=== PATIENT | female | born 2000 | race Caucasian/White ===

== ENCOUNTER → 2019-06-23 11:28 | Outpatient (CLI) | payer OTHER, MEDICAID, SELFPAY ==
--- NOTE | 2019-06-23 11:32 | DI.US.S_ITS ---
PROCEDURE: US OB <= 14 WEEKS FETUS INDICATIONS: INITIAL US FOR DATING AND VIBILITY PLEASE OUTSIDE/PRIOR DATING DATA: Last menstrual period (LMP): Unknown. LMP-based estimated date of delivery (LESTER): Unknown. First dating scan (date and location): 06/23/19. Estimated date of delivery (LESTER) from first dating scan: 01/25/20. TECHNIQUE: Real-time scanning was performed of the fetus and maternal pelvic organs, with image documentation. COMPARISON: None. FINDINGS: Embryo: Single live intrauterine gestation is seen with fetus noted. heart rate is 162 beats per minute. [place]-rump length is 2.5 cm. Estimated gestational age is 9 weeks one day. Cervix is closed, cervical length is 4.2 cm. Measurement variability in dating: +/- 4 weeks by LMP, +/- 7 days by mean sac diameter (use before 6 weeks gestation if crown-rump length not able to be measured), +/- 5 days by crown-rump length (up to 8 weeks 6 days gestation), +/- 7 days by crown-rump length (up to 13 weeks 6 days gestation). Maternal organs: Right ovary is not well seen on this study. Corpus luteum in left ovary is noted in Limited images through the kidneys demonstrate no hydronephrosis. IMPRESSION: 1. Single live intrauterine with fetus seen. heart rate is 162 beats per minute. Estimated gestational age is 9 weeks one day. Dictated by: Kayode Amin M.D. on 06/23/2019 at 12:37 Approved by: Kayode Amin M.D. on 06/23/2019 at 12:40
== END ==
PROVIDERS: Visit Provider Family Medicine
DX: Z34.81 Encounter for supervision of other normal pregnancy, first trimester (principal); Z3A.09 9 weeks gestation of pregnancy
CPT/HCPCS: 76801